=== PATIENT | male | born 1990 | race Caucasian/White ===

== ENCOUNTER 2021-08-14 18:33 | Emergency (ER) | payer BC ==
[~2021-08-14] VITALS: Ht 180.3 cm; Wt 91.0 kg
[~2021-08-14 18:33] MED LIST: ACEPHEN325 MG PO; AMOXICILLIN500 MG OR; AMOXICILLIN500 MG PO; AMOXICILLIN875 MG PO; CEPHALEXIN500 M1 PO; CIPRODEX1 ML AD; LEVAQUIN500 MG PO; MEDDOSEPAK PO; ROCEPHIN 1 GM1 GM IM; ULTRAM50 M1 PO
[2021-08-14] MEDS ORDERED: FENOFIBRATE145 MG PO (19:49)
[2021-08-14] MEDS ORDERED: LIPITOR80 M1 PO (19:50)
[2021-08-14 20:49] VITALS: BP 118/73
== END 2021-08-14 20:49 | disposition home or self-care (01) | DRG 563 ==
LOC: ED 18:33
DX: S92.411A Displaced fracture of proximal phalanx of right great toe, initial encounter for closed fracture (principal); S80.811A Abrasion, right lower leg, initial encounter; S90.811A Abrasion, right foot, initial encounter; W22.09XA Striking against other stationary object, initial encounter; Y93.02 Activity, running; Y92.007 Garden or yard of unspecified non-institutional (private) residence as the place of occurrence of the external cause